=== PATIENT | male | born 1980 | race Caucasian/White ===

== ENCOUNTER 2018-01-31 18:21 | Emergency (ER) | payer MEDICAID ==
[2018-01-31 19:18] LABS: ADD UMIC NO; UR ASCORBIC ACID NEGATIVE (NEGATIVE); UR BACTERIA FEW /HPF (NONE SEEN); UR BILIRUBIN (Dip) NEGATIVE (NEGATIVE); UR BLOOD (Dip) NEGATIVE (NEGATIVE); UR CLARITY SLIGHTLY CLOUDY (CLEAR); UR COLOR YELLOW (YELLOW); UR GLUCOSE (Dip) NEGATIVE (NEGATIVE); UR KETONES (Dip) NEGATIVE (NEGATIVE); UR LEUKOCYTE ESTERASE (Dip) NEGATIVE Leu/ul (NEGATIVE); UR MUCUS FEW /HPF (NONE SEEN); UR NITRITE (Dip) NEGATIVE (NEGATIVE); UR RBC 1 /HPF (0-5); UR TOTAL PROTEIN (Dip) NEGATIVE (NEGATIVE); UR UROBILINOGEN (Dip) 1+ mg/dL (NEGATIVE); UR WBC 2 /HPF (0-5)
[2018-01-31 19:52] LABS: ADD MAN DIFF? NO
[2018-01-31 19:57] LABS: BASOPHIL # 0.1 10^3/ul (0.0-0.1); BASOPHILS % 0.6 % (0.0-2.0); EOSINOPHILS # 0.2 10^3/ul (0.0-0.5); EOSINOPHILS % 1.8 % (0.0-7.0); HEMATOCRIT 43.6 % (42.0-52.0); HEMOGLOBIN 13.1 g/dl (14.0-18.0); LYMPHOCYTES # 1.9 10^3/ul (0.8-2.9); LYMPHOCYTES % 20.7 % (15.0-51.0); MEAN CORPUSCULAR VOLUME 76.5 fl (82.0-101.0); MONOCYTE # 0.9 10^3/ul (0.3-0.9); MONOCYTES % 9.5 % (0.0-11.0); NEUTROPHIL # 6.1 10^3/ul (1.6-7.5); NEUTROPHILS % 67.1 % (39.0-77.0); PLATELET COUNT 524 10^3/UL (140-415); RED CELL DISTRIBUTION WIDTH 17.2 % (11.5-14.5)
[2018-01-31] MEDS ORDERED: LIDOCAINE 1%/EPI 30 ML INJ INJ (20:04)
[2018-01-31 20:21] LABS: ANION GAP 11 (5-13); BLOOD UREA NITROGEN 17 mg/dl (7-20); C-REACTIVE PROTEIN 2.1 mg/dl (0.0-0.9); CALCIUM 9.4 mg/dl (8.4-10.2); CARBON DIOXIDE 25 mmol/L (21-31); CHLORIDE 103 mmol/L (97-110); CREATININE 0.94 mg/dl (0.61-1.24); Estimated GFR > 60 mL/min (>60); GLUCOSE 101 mg/dl (70-220); POTASSIUM 4.1 mmol/L (3.5-5.1); SODIUM 139 mmol/L (135-144)
[2018-01-31] MEDS: LIDOCAINE 1%/EPI (1:100,000) (MDV) 20 ML INJ (21:04)
[2018-01-31] MEDS: KETOROLAC 30 MG INJ IM ×2 (21:05→21:26)
[2018-01-31 21:25] LABS: ERYTHROCYTE SEDIMENTATION RATE 35 mm/Hr (0-15)
== END 2018-01-31 22:01 | disposition home or self-care (01) ==
LOC: E/R 18:21
DX: M54.5 Low back pain (principal); F17.210 Nicotine dependence, cigarettes, uncomplicated; M17.9 Osteoarthritis of knee, unspecified
CPT/HCPCS: 20610; 73562; 80048; 81001; 81003; 85025; 85651; 86140; 96372; 99284-25